=== PATIENT | male | born 1945 | race Caucasian/White ===

== ENCOUNTER 2018-05-21 12:36 | Outpatient (CLI) | payer MEDICARE, OTHER ==
--- NOTE | 2018-05-21 12:49 | RAD ---
EXAM: Chest 2 views: HISTORY: Dyspnea COMPARISON: None. FINDINGS: There is a normal-sized cardiomediastinal silhouette. There is no evidence of consolidation or pleura l effusion. A calcified granuloma projects over the right thorax. The patient is status post sternotomy. Degenerative changes are seen in the spine. IMPRESSION: No evidence of acute cardiopulmonary disease
== END 2018-05-21 12:37 | disposition home or self-care (01) ==
LOC: RAD 12:36
PROVIDERS: ATTEND Internal Medicine
DX: R06.00 Dyspnea, unspecified (principal)
CPT/HCPCS: 71046

== ENCOUNTER 2018-12-29 12:42 | Day surgery (SDC) | payer MEDICARE, OTHER ==
[2018-12-28 11:57] VITALS: BMI 27.9
[~2018-12-29 12:42] MED LIST: Bupivacaine HCl 0.5%/Epinephrine 1:200,000/PF 30 ml Vial ONE; EPINEPHrine 1 MG/10 ML Abboject SYRINGE ONE
[2018-12-29] MEDS ORDERED: Bupivacaine PF 0.5% 30 ML VIAL ONE ×2 (13:43→15:24)
[2018-12-29 13:44] LABS: #Basophils 0.1 thou/uL (0.0-0.2); #Eosinphils 0.2 thou/uL (0.0-0.7); #Lymphocytes 1.4 thou/uL (1.20-3.40); #Monocytes 0.5 thou/uL (0.11-0.59); #Neutrophils 3.1 thou/uL (1.40-6.50); %Basophils 1.8 % (0.0-1.0); %Eosinophils 3.7 % (0.0-10.0); %Lymphocytes 26.6 % (21.0-51.0); %Monocytes 9.4 % (0.0-10.0); %Neutrophils 58.4 % (42.0-75.0); Hemoglobin 14.7 g/dL (14.0-18.0); Mean Corpuscular HGB CONC 34.6 g/dL (32.0-36.0); Mean Platelet Volume 6.7 fL (7.4-10.4); Platelet Count 241 thou/uL (130-400); RBC Distribution Width 12.3 % (11.5-14.5); Red Blood Cell (RBC) Count 4.21 mill/uL (4.70-6.10); White Blood Cell (WBC) Count 5.3 thou/uL (4.8-10.8)
[2018-12-29] MEDS ORDERED: Midazolam HCl 2 mg/2 ml Vial ONE (13:47)
[2018-12-29] MEDS ORDERED: Fentanyl 100 MCG/2 ML VIAL ONE ×2 (13:48→15:38)
[2018-12-29 14:05] LABS: Anion Gap 10 mmol/L (10-20); BUN (Urea Nitrogen) 13 mg/dL (8.4-25.7); Calc. Creatinine Clearance 84 mL/min (70-130); Calcium 9.2 mg/dL (7.8-10.44); Carbon Dioxide 27 mmol/L (23-31); Chloride 107 mmol/L (98-107); Estimated GFR-MDRD 73; Glucose 98 mg/dL (83-110); Potassium 3.7 mmol/L (3.5-5.1); Sodium 140 mmol/L (136-145)
[2018-12-29] MEDS ORDERED: Bacitracin Zinc Ointment 30 gm TUBE ONE (15:24)
[2018-12-29] MEDS ORDERED: Sodium Chloride 0.9% 10 ML ONE (15:24)
[2018-12-29] MEDS ORDERED: PROPOFOL 0 ML ONE (16:30)
[2018-12-29] MEDS ORDERED: hydrALAZINE 20 MG/ML VIAL ONE (19:08)
[2018-12-29] MEDS ORDERED: Ketorolac Tromethamine 30 MG/ML VIAL ONE (20:08)
--- NOTE | 2018-12-30 08:14 | OP ---
DATE OF PROCEDURE: 12/29/2018 PREOPERATIVE DIAGNOSIS: Right thumb extensor pollicis longus laceration, at the metacarpophalangeal joint. FINDINGS: 1. Complete laceration and retraction approximately 2 cm, laceration just in proximal retinaculum. 2. No evidence of pseudotendon formed, preventing further migration proximally. 3. No evidence of main branch superficial radial nerve laceration, intact via neuroplasty. PROCEDURES PERFORMED: 1. Superficial radial nerve neuroplasty. 2. Extensor pollicis longus laceration repair. 3. Retinaculum repair. TOURNIQUET TIME: 56 minutes. ANESTHESIA: Supraclavicular block augmented with nothing else. Splint application at end of the procedure yes. Thumb spica in position of abduction of the thumb. DESCRIPTION OF PROCEDURE: After successful general endotracheal anesthesia, the limb was prepped and draped. We outlined the Dianne's tubercle for at least a 2 cm incision, in case we had to do a graft and then took the transverse 1 cm incision, which underwent debridement plus closure today and extended it 2 cm proximal and 1 cm distal. We then visualized a pseudotendon emanating from the retinaculum and retinaculum was two-thirds lacerated. We dissected out the retinaculum, identified it for later closure. We then performed an incision at the level of Dianne's tubercle, but initially could not see the tendon as it was buried under what was pseudotendon. It was covered by pseudotendon. Moved the pseudotendon as part of extensor tenotomy, found the tendon in the proximal wound, and then found it in distal wound, and brought it to a point, where it was approximately 1 cm short of touching the remnant distally. We resected 1 mm circumferentially, both proximal and distal stumps, and then we used the Wei-Diogo technique to include and over sew with 6-0 Prolene, to bring the tendons in excellent coaptation immediately cause hyperextension of the IP joint. Once we had done this and over sewing, we then flexed the now hyperextended IP joint to 30 degrees of flexion. There was no undue tension on repair. We then held the thumb in slight abduction in order to centralize the tendon and repaired the retinaculum using a 4-0 [id number] interrupted Prolene. We obtained hemostasis. We irrigated the wound, and then we were able to close the incision primarily both at the retinaculum and at the primary repair site with one layer of 4-0 nylon interrupted mattress pattern. The patient left the operating room without evidence of anesthetic or operative complication. Job ID: [id number]
--- NOTE | 2019-01-03 13:26 | EKG ---
Test Reason : PREOP Blood Pressure : / mmHG Vent. Rate : 065 BPM Atrial Rate : 065 BPM P-R Int : 184 ms QRS Dur : 106 ms QT Int : 438 ms P-R-T Axes : 037 -31 054 degrees QTc Int : 455 ms Normal sinus rhythm Possible Left atrial enlargement Left axis deviation Incomplete right bundle branch block Abnormal ECG No previous ECGs available Confirmed by DEIDRE CONTEH ([id number]) on 01/03/2019 1:26:30 PM Referred By: ALICIA Confirmed By:DEIDRE CONTEH
== END 2018-12-29 21:14 | disposition home or self-care (01) ==
LOC: SDC 12:42
PROVIDERS: ATTEND Orthopaedic Surgery Hand Surgery
PROC: 0LQ70ZZ Repair Right Hand Tendon, Open Approach (ICD-10-PCS; principal; 2018-12-29)
DX: S66.221A Laceration of extensor muscle, fascia and tendon of right thumb at wrist and hand level, initial encounter (principal); S61.001A Unspecified open wound of right thumb without damage to nail, initial encounter; G89.18 Other acute postprocedural pain; J45.909 Unspecified asthma, uncomplicated; E78.00 Pure hypercholesterolemia, unspecified; I10 Essential (primary) hypertension; Z79.82 Long term (current) use of aspirin; Z79.899 Other long term (current) drug therapy; Z95.1 Presence of aortocoronary bypass graft; W01.198A Fall on same level from slipping, tripping and stumbling with subsequent striking against other object, initial encounter
CPT/HCPCS: 36415; 80048; 85025; 93005; 93010; J0171; J0360; J0670; J0690; J1885; J2250; J2704; J3010; J3490; S0020

== ENCOUNTER 2019-11-09 10:12 | Observation (INO) | payer MEDICARE, OTHER ==
[2019-11-09] MEDS ORDERED: Ondansetron PF 4 MG/2 ML Vial ONE (11:02)
[2019-11-09] MEDS ORDERED: Morphine 4 MG/ML VIAL ONE (11:02)
[2019-11-09 11:31] LABS: #Lymphocytes 0.6 thou/uL (1.20-3.40); #Neutrophils 11.7 thou/uL (1.40-6.50); %Basophils 0.2 % (0.0-1.0); %Eosinophils 0.2 % (0.0-10.0); %Lymphocytes 4.6 % (21.0-51.0); %Monocytes 7.7 % (0.0-10.0); %Neutrophils 87.3 % (42.0-75.0); Hemoglobin 16.2 g/dL (14.0-18.0); Mean Corpuscular HGB CONC 32.5 g/dL (32.0-36.0); Mean Corpuscular Hemoglobin 33.5 pg (27.0-31.0); Mean Platelet Volume 7.6 fL (7.4-10.4); Platelet Count 216 thou/uL (130-400); RBC Distribution Width 12.3 % (11.5-14.5); Red Blood Cell (RBC) Count 4.83 mill/uL (4.70-6.10); White Blood Cell (WBC) Count 13.4 thou/uL (4.8-10.8)
[2019-11-09 11:49] LABS: ALT (SGPT) 33 U/L (8-55); AST (SGOT) 27 U/L (5-34); Albumin 4.6 g/dL (3.4-4.8); Alkaline Phosphatase 91 U/L (40-110); Anion Gap 16 mmol/L (10-20); BUN (Urea Nitrogen) 14 mg/dL (8.4-25.7); Bilirubin, Total 2.5 mg/dL (0.2-1.2); Calc. Creatinine Clearance 0 mL/min (70-130); Calcium 9.4 mg/dL (7.8-10.44); Carbon Dioxide 21 mmol/L (23-31); Chloride 103 mmol/L (98-107); Estimated GFR-MDRD 79; Glucose 159 mg/dL (83-110); Lipase 13 U/L (8-78); Potassium 3.9 mmol/L (3.5-5.1); Protein, Total 7.6 g/dL (5.8-8.1); Sodium 136 mmol/L (136-145)
[2019-11-09] MEDS ORDERED: Iopamidol-370 76% 500 ML 1 ML ONE (11:52)
--- NOTE | 2019-11-09 12:28 | CT ---
CT Abdomen Pelvis W Con: 11/09/2019 12:23 PM CLINICAL INFORMATION: Right-sided chest and upper abdominal pain COMPARISON: None. TECHNIQUE: Multiple contiguous axial images were obtained and a CT of the abdomen and pelvis with IV contrast. C oronal and sagittal reformats were performed. FINDINGS: Lower Chest: within normal limits. Abdomen: Liver: within normal limits. Bile Ducts: Normal caliber. Gallbladder: There may be subtle hyperdensities in the dependent gallbladder which could represent ga llstones. There is questionable gallbladder wall thickening. Pancreas: within normal limits. Spleen: within normal limits. Adrenals: within normal limits. Kidneys: Hypodensities in the right kidney measuring up to 5.2 cm in size likely represent cysts. Pelvis: Reproductive Organs: No pelvic masses. Ureters: within normal limits. Bladder: within normal limits. Peritoneum: No ascites or free air, no fluid collection. Bowel: Normal caliber. Normal appendix. Mesentery and Retroperitoneum: No enlarged mesenteric or retroperitoneal lymph nodes. Vessels: Atherosclerotic calcifications. Abdominal Wall: within normal limits. Bones: Degenerative changes in the spine. IMPRESSION: 1. Possible cholelithiasis with gallbladder wall thickening. A right upper quadrant abdominal ultraso und is recommended for further evaluation 2. Right renal cysts
--- NOTE | 2019-11-09 13:50 | RAD ---
PA AND LATERAL CHEST: 11/09/19 HISTORY: Chest pain. Heart size is within normal limits. Postop sternotomy changes are present. calcified granuloma is see n in the right mid lung field. Areas of nodularity in both lung bases probably related to nipple shad ow. There are arthritic changes in the spine. IMPRESSION: No active intrathoracic disease. Nodular densities in the lung bases probably related to nipple shado ws does appear of a similar appearance to a 05/21/18 study. POS: [facility]
[2019-11-09] MEDS ORDERED: Ondansetron ODT 8 MG TAB PO PRN (14:18)
[2019-11-09] MEDS ORDERED: Ondansetron PF 4 MG/2 ML Vial IVP PRN (14:18)
[2019-11-09] MEDS ORDERED: Ondansetron ODT 4 MG TAB PO PRN (14:18)
[2019-11-09] MEDS ORDERED: Non-Formulary Item 1 EACH (Albuterol Sulfate [Proair Hfa] 8.5 GM Hfa.Aer.Ad) PO PRN (14:23)
[2019-11-09] MEDS ORDERED: Fluticasone Propionate Nasal Spray 16 gm Bottle NASAL PRN (14:23)
[2019-11-09] MEDS ORDERED: hydrALAZINE 20 MG/ML VIAL SLOW IVP PRN (14:24)
[2019-11-09] MEDS ORDERED: Morphine 2 MG/ML VIAL SLOW IVP PRN (14:24)
[2019-11-09] MEDS ORDERED: Morphine 4 MG/ML VIAL SLOW IVP PRN (14:24)
[2019-11-09 16:39] VITALS: BMI 27.2
[2019-11-09] MEDS: Ketorolac Tromethamine 30 MG/ML VIAL IVP PRN (16:45)
[2019-11-09] MEDS: Acetaminophen 500 MG TAB PO PRN (16:45)
[2019-11-09] MEDS: cloNIDine 0.1 MG TAB PO PRN (16:48)
[2019-11-09] MEDS: Lactated Ringer's 1,000 ML IV SCH (16:58)
[2019-11-09] MEDS ORDERED: Labetalol HCl 100 MG/20 ML VIAL SLOW IVP PRN ×2 (17:24)
--- NOTE | 2019-11-09 17:53 | HP ---
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 The patient had acute onset last night of epigastric pain, back radiation, burning in nature, and right upper quadrant, associated with nausea. He presented to the emergency room and CAT scan of the abdomen and pelvis obtained revealed gallstones, probable inflammatory changes of the gallbladder. He was tender in his epigastric and right upper quadrant with guarding, positive Xie sign. His white count is 13, hemoglobin 16. Bilirubin is slightly elevated at 2.5. Troponin is normal. EKG without acute changes. Lipase is normal. AST, ALT, and alkaline phosphatase is normal. The patient reports having past episodes of indigestion and fullness in the upper abdomen postprandial, but never such as this. Plan is to obtain an ultrasound. There is no ductal dilatation noted on his CAT scan. The patient's troponins were negative. EKG without acute changes. The patient had a coronary artery bypass graft in 2014 in [place]. He is followed by Dr. Karlos Shelby, [place] [employer]. He last saw him earlier this year and was asymptomatic and an office evaluation determined his heart was in good condition. The patient had an echocardiogram last year he states was normal. The patient is very active. Does farm and ranch work without any cardiac symptomatology. Plan is for COVID testing and plan is for intravenous antibiotics, fluids and plan laparoscopic cholecystectomy tomorrow. He understands the risks and benefits of procedure and consents. Risks of infection, bleeding, visceral and biliary injury, and consents. ALLERGIES: NONE. SOCIAL HISTORY: Tobacco, none. Alcohol, liquor 4 to 5 drinks a day. MEDICATIONS: 1. Albuterol sulfate. 2. ProAir p.r.n. 3. Co Q10 daily. 4. Flonase p.r.n. 5. Benadryl daily. 6. Naproxen 250 mg b.i.d. 7. Aspirin 81 mg a day. 8. Flomax 0.4 mg a day. 9. Doxazosin 8 mg at bedtime. 10. Toprol-XL 25 mg b.i.d. 11. Cozaar 50 mg at bedtime. 12. Symbicort daily. PAST SURGICAL HISTORY: Coronary artery bypass grafting. He is up to date on his colonoscopies. PAST MEDICAL HISTORY: Hypertension, stable coronary disease, asymptomatic, very active without symptoms, acute cholecystitis, cholelithiasis. FAMILY HISTORY: Noncontributory. REVIEW OF SYSTEMS: Noncontributory. PHYSICAL EXAMINATION: VITAL SIGNS: Height 5 feet 10 inches, 190 pounds, 27 BMI. Temperature 98.6, respiratory rate 16, blood pressure 185/82. HEAD, EARS, EYES, NOSE AND THROAT: Unremarkable. LUNGS: Clear to auscultation. CARDIAC: Regular rate and rhythm without murmur or gallop. ABDOMEN: Soft, except in his right upper quadrant where he has guarding, rebound, and positive Xie sign. EXTREMITIES: Unremarkable. No ankle edema. LABORATORY DATA: Troponins are negative. Comprehensive metabolic profile normal except for bilirubin of 2.5. ASSESSMENT AND PLAN: 1. Acute cholecystitis. Plan admission with intravenous antibiotics. Await COVID testing. Plan laparoscopic cholecystectomy and cholangiogram tomorrow. He understands risks of infection, bleeding, visceral and biliary injury, and consents. We will obtain cholangiograms. We will obtain an ultrasound of his gallbladder a period of time after obtaining his CAT scan with contrast to assess to verify gallstones and assess his bile duct caliber. 2. Coronary artery disease, stable. He is asymptomatic. No further testing preoperative or perioperative necessary. 3. Hypertension. Job ID: [id number]
[2019-11-09] MEDS: Enoxaparin Sodium 40 MG/0.4 ML SYRINGE SC SCH (20:27)
[2019-11-09] MEDS: Famotidine 20 MG TAB PO SCH (20:27)
[2019-11-09] MEDS: Losartan 25 MG TAB PO SCH (20:27)
[2019-11-09] MEDS: Tamsulosin HCl 0.4 MG CAP PO SCH (20:28)
[2019-11-09] MEDS: Doxazosin Mesylate 4 MG TAB PO SCH (21:11)
[2019-11-10] MEDS: Lactated Ringer's 1,000 ML IV SCH ×3 (02:55→21:56)
[2019-11-10] MEDS: Ketorolac Tromethamine 30 MG/ML VIAL IVP PRN ×2 (04:00→09:49)
[2019-11-10] MEDS: cloNIDine 0.1 MG TAB PO PRN (04:05)
[2019-11-10 07:15] LABS: ALT (SGPT) 43 U/L (8-55); AST (SGOT) 25 U/L (5-34); Albumin 3.8 g/dL (3.4-4.8); Alkaline Phosphatase 72 U/L (40-110); Anion Gap 12 mmol/L (10-20); BUN (Urea Nitrogen) 14 mg/dL (8.4-25.7); Calc. Creatinine Clearance 86 mL/min (70-130); Carbon Dioxide 24 mmol/L (23-31); Chloride 104 mmol/L (98-107); Estimated GFR-MDRD 80; Globulin 2.5 g/dL (2.4-3.5); Glucose 130 mg/dL (83-110); Potassium 4.1 mmol/L (3.5-5.1); Protein, Total 6.3 g/dL (5.8-8.1); Sodium 136 mmol/L (136-145)
--- NOTE | 2019-11-10 07:32 | ULT ---
RIGHT UPPER QUADRANT ULTRASOUND: INDICATION: History of right upper quadrant pain. COMPARISON: CT of the abdomen and pelvis dated 11/09/2019. FINDINGS: There is prominent gallbladder distention with layered sludge and stones. There is gallbladder wall thickening and pericholecystic fluid. There is positive sonographic Xie's sign. There are right renal cysts. The largest is seen within the superior pole measuring 4.7 cm. In addition, a smaller mildly septated cyst is seen within the lower pole of the right kidney measuring 1.1 cm. No hydronep hrosis is evident. No focal hepatic lesion is grossly evident. The liver is mildly echogenic. Ther e is a small 8 mm cyst within the left hepatic lobe. The common bile duct is normal measuring 3.2 mm . The right kidney measured 1.1 x 4.7 x 5.4 cm. The liver measures 17.1 cm. There is appropriate h epatopetal flow within the portal vein. The visualized aspects of the pancreas are unremarkable-appe aring. IMPRESSION: 1. Findings highly suspicious for acute calculus cholecystitis. 2. Fatty liver with left hepatic lobe cyst. 3. Right renal cysts. POS: [facility]
[2019-11-10] MEDS: Aspirin 81 mg Enteric Coated Tablet PO SCH (08:29)
[2019-11-10] MEDS: Loratadine 10 MG TAB PO SCH (08:29)
[2019-11-10] MEDS: Ibuprofen 200 MG TAB PO SCH (08:29)
[2019-11-10] MEDS: Famotidine 20 MG TAB PO SCH ×2 (08:31→20:13)
[2019-11-10] MEDS ORDERED: Ondansetron PF 4 MG/2 ML Vial ONE (11:07)
[2019-11-10] MEDS ORDERED: Dexamethasone 20 MG/5 ML VIAL ONE (11:07)
[2019-11-10] MEDS ORDERED: Glycopyrrolate 0.2 MG/ML 5 ML SYRINGE ONE (11:07)
[2019-11-10] MEDS ORDERED: Ketorolac Tromethamine 30 MG/ML VIAL ONE (11:07)
[2019-11-10] MEDS ORDERED: PROPOFOL 200 MG/20 ML VIAL ONE (11:07)
[2019-11-10] MEDS ORDERED: Rocuronium Bromide 10 MG/ML (10ML VIAL) ONE (11:07)
[2019-11-10 13:14] LABS: SARS-CoV-2 MS2 Positive; SARS-CoV-2 N Gene Negative; SARS-CoV-2 S Gene Negative; SARS-CoV-2 by NAA Not Detected (NotDetected); SARS-CoV-2 orf1ab Negative
[2019-11-10] MEDS ORDERED: Lidocaine 1% w/Epinephrine 1:100K 20 ML VIAL ONE (14:19)
[2019-11-10] MEDS ORDERED: Iothalamate Meglumine 60% 50 ML VIAL FS ONE (14:19)
[2019-11-10] MEDS ORDERED: Bupivacaine PF 0.5% 30 ML VIAL ONE (14:19)
[2019-11-10] MEDS ORDERED: Fentanyl 100 MCG/2 ML VIAL ONE ×2 (14:24→15:32)
[2019-11-10] MEDS ORDERED: traMADol HCl 50 MG TAB PO PRN (17:06)
[2019-11-10] MEDS ORDERED: Ondansetron HCl/PF 4 MG/2 ML Vial IVP PRN (17:09)
[2019-11-10] MEDS ORDERED: Naproxen 500 MG TAB PO PRN (17:13)
[2019-11-10] MEDS: Mometasone 200 MCG/Formoterol 5 MCG 120 PUFF INHALER INH SCH (19:30)
[2019-11-10] MEDS: Doxazosin Mesylate 4 MG TAB PO SCH (20:13)
[2019-11-10] MEDS: Tamsulosin HCl 0.4 MG CAP PO SCH (20:13)
[2019-11-10] MEDS: Losartan 25 MG TAB PO SCH (20:13)
[2019-11-10] MEDS: Enoxaparin Sodium 40 MG/0.4 ML SYRINGE SC SCH (20:14)
--- NOTE | 2019-11-10 21:40 | OP ---
DATE OF PROCEDURE: 11/10/2019 PREOPERATIVE DIAGNOSES: Acute cholecystitis and cholelithiasis. POSTOPERATIVE DIAGNOSES: Acute cholecystitis and cholelithiasis. PROCEDURE PERFORMED: Laparoscopic video cholecystectomy (cholangiogram was attempted, but I could not place a cholangiocatheter). ANESTHESIA: General, local 0.5% Marcaine 30 mL mixed with 1% Xylocaine with epinephrine 20 mL. FINDINGS: Acute cholecystitis, severely inflamed gallbladder. DESCRIPTION OF PROCEDURE: The patient was taken to the operating room, when under general anesthesia, abdomen was prepared with ChloraPrep and draped in routine fashion. Local anesthetic was infiltrated in the skin and subcutaneous tissue about the operative site. Infraumbilical incision was made. Pneumoperitoneum to 15 mmHg was obtained with a Veress needle, replaced with a 5 port, laparoscope inserted. Right subcostal incision made at midclavicular and anterior axillary line. A 5 port was placed. Right subxiphoid incision was made and 11 port was placed. Gallbladder was acutely inflamed. Liver appeared to be normal. Gallbladder had to be decompressed to grasp it, it was so thick walled and inflamed. Fundus was grasped at the cephalad. Infundibulum cleared and cystic artery and duct dissected free, critical view obtained. Cystic duct opened near the gallbladder and multiple attempts to place a cholangiocatheter were not possible. Cystic duct stump doubly clipped proximally. Cystic artery doubly clipped proximally, divided and gallbladder was dissected free, obtaining good hemostasis prior to division of final peritoneal attachments. Gallbladder and contents placed in endobag and removed. Good hemostasis ensured with cautery. Herb used. Irrigant and pneumoperitoneum evacuated. Subxiphoid fascia was approximated with [id number] suture of 0 Vicryl. Skin and subcutaneous tissues irrigated. Skin approximated with tiara and with subcuticular sutures. The patient tolerated the procedure well. Job ID: [id number]
[2019-11-10] MEDS: Acetaminophen 500 MG TAB PO PRN (23:11)
[2019-11-11] MEDS: Lactated Ringer's 1,000 ML IV SCH (05:18)
[2019-11-11 05:22] LABS: #Lymphocytes 0.5 thou/uL (1.20-3.40); #Monocytes 0.9 thou/uL (0.11-0.59); #Neutrophils 9.4 thou/uL (1.40-6.50); %Lymphocytes 4.9 % (21.0-51.0); %Monocytes 8.2 % (0.0-10.0); %Neutrophils 86.9 % (42.0-75.0); Hemoglobin 13.5 g/dL (14.0-18.0); Mean Corpuscular HGB CONC 32.8 g/dL (32.0-36.0); Mean Corpuscular Hemoglobin 33.7 pg (27.0-31.0); Platelet Count 163 thou/uL (130-400); RBC Distribution Width 12.2 % (11.5-14.5); Red Blood Cell (RBC) Count 3.99 mill/uL (4.70-6.10); White Blood Cell (WBC) Count 10.8 thou/uL (4.8-10.8)
[2019-11-11 05:41] LABS: ALT (SGPT) 58 U/L (8-55); AST (SGOT) 62 U/L (5-34); Albumin 3.4 g/dL (3.4-4.8); Alkaline Phosphatase 65 U/L (40-110); Anion Gap 12 mmol/L (10-20); BUN (Urea Nitrogen) 14 mg/dL (8.4-25.7); Bilirubin, Total 2.4 mg/dL (0.2-1.2); Calc. Creatinine Clearance 79 mL/min (70-130); Calcium 9.1 mg/dL (7.8-10.44); Carbon Dioxide 24 mmol/L (23-31); Chloride 104 mmol/L (98-107); Estimated GFR-MDRD 72; Globulin 2.8 g/dL (2.4-3.5); Glucose 154 mg/dL (83-110); Potassium 4.4 mmol/L (3.5-5.1); Protein, Total 6.2 g/dL (5.8-8.1); Sodium 136 mmol/L (136-145)
[2019-11-11] MEDS: Mometasone 200 MCG/Formoterol 5 MCG 120 PUFF INHALER INH SCH (06:45)
[2019-11-11] MEDS: Famotidine 20 MG TAB PO SCH (08:53)
[2019-11-11] MEDS: Aspirin 81 mg Enteric Coated Tablet PO SCH (08:53)
[2019-11-11] MEDS: Loratadine 10 MG TAB PO SCH (08:54)
[2019-11-11] MEDS: Ibuprofen 200 MG TAB PO SCH (08:54)
[2019-11-11] MEDS ORDERED: Ubidecarenone 50 MG CAP PO SCH (09:00)
[2019-11-11] MEDS ORDERED: diphenhydrAMINE 25 MG CAP PO SCH (09:00)
[2019-11-11 12:43] VITALS: BP 118/73; TEMP 92.2
--- NOTE | 2019-11-11 14:08 | DIS ---
DATE OF ADMISSION: 11/09/2019 DATE OF DISCHARGE: 11/11/2019 DISCHARGE DIAGNOSES: Acute cholecystitis, cholelithiasis, history of coronary artery bypass grafting. CT scan of the abdomen and pelvis revealing distended gallbladder with thickened wall stones. Ultrasound confirmed this with normal bile duct caliber. Admission bilirubin 2.5, morning of surgery 3, discharge 2.4. PROCEDURE THIS HOSPITALIZATION: Laparoscopic cholecystectomy. HISTORY: Karlos Madera presented with epigastric pain, right upper quadrant pain, had a positive Xie sign, had abnormal liver function test, underwent a CAT scan suggesting gallbladder disease. Admitted, given intravenous fluids and antibiotics overnight. COVID screen was negative. Ultrasound revealed normal bile duct caliber. There was no intrahepatic ductal dilatation on his CAT scan. The patient underwent laparoscopic video cholecystectomy with findings of acute cholecystitis. Cholangiogram was attempted but not possible. Technically, he was hospitalized overnight. Hemoglobin remained stable. Bilirubin improved. Liver function tests improved. His preoperative pain resolved. Postoperatively, he did well. He is going to be discharged home at this time with followup my office in 2 to 3 weeks. Diet as tolerated. Resume his home medications. Ultram and Levaquin given. Ultram p.r.n. pain #25, one refill. Levaquin 500 daily for 5 days. He is to resume his home medications; Benadryl, tramadol, Flomax, metoprolol, naproxen, losartan, ibuprofen, doxazosin, aspirin, albuterol p.r.n., Tylenol Extra Strength. Diet and activity as tolerated. No lifting restriction. Shower and bathe at any time. Job ID: [id number]
--- NOTE | 2019-11-17 16:29 | EKG ---
Test Reason : Blood Pressure : / mmHG Vent. Rate : 058 BPM Atrial Rate : 058 BPM P-R Int : 172 ms QRS Dur : 092 ms QT Int : 422 ms P-R-T Axes : 026 -31 061 degrees QTc Int : 414 ms Sinus bradycardia Possible Left atrial enlargement Left axis deviation Incomplete right bundle branch block Abnormal ECG Confirmed by KAN CATHERINE DO ([id number]), acquisitions editor KAITY CHARLTON ([id number]) on 11/17/2019 4:27:52 PM Referred By: Confirmed By:KAN CATHERINE DO
== END 2019-11-11 13:00 | disposition home or self-care (01) ==
LOC: ERS 10:12 → SJJU 12:55
PROVIDERS: ADMIT Specialist; ATTEND Specialist
PROC: 0FT44ZZ Resection of Gallbladder, Percutaneous Endoscopic Approach (ICD-10-PCS; principal; 2019-11-10)
DX: K80.12 Calculus of gallbladder with acute and chronic cholecystitis without obstruction (principal); K82.8 Other specified diseases of gallbladder; I10 Essential (primary) hypertension; I25.10 Atherosclerotic heart disease of native coronary artery without angina pectoris; K76.0 Fatty (change of) liver, not elsewhere classified; K76.89 Other specified diseases of liver; N28.1 Cyst of kidney, acquired; E78.00 Pure hypercholesterolemia, unspecified; J45.909 Unspecified asthma, uncomplicated; Z79.1 Long term (current) use of non-steroidal anti-inflammatories (NSAID); Z79.82 Long term (current) use of aspirin; Z79.899 Other long term (current) drug therapy; Z95.1 Presence of aortocoronary bypass graft; Z20.828 Contact with and (suspected) exposure to other viral communicable diseases
CPT/HCPCS: 47562; 71046; 74177; 76705; 80053 ×3; 83690; 84484; 85025 ×2; 86850; 86900; 86901; 88304; 93005; 94640 ×2; 96365; 96366; 96375; 97139 ×2; 99285; J1610; U0003; 36415; 87635; 96361; 96372; 96376; G0378; J1100; J1650; J1885; J1956; J2270; J2405; J2704; J3010; Q0163; Q9967; S0020